=== PATIENT | male | born 1990 | race Two or more races ===

== ENCOUNTER 2018-03-30 15:42 | Emergency (ER) | payer OTHER ==
[~2018-03-30] VITALS: Ht 162.6 cm; Wt 68.0 kg
[2018-03-30 15:44] VITALS: BP 114/79
[2018-03-30] MEDS ORDERED: CEPHALEXIN500 MG ORAL (16:13)
[2018-03-30] MEDS ORDERED: BACITRACIN-P28.35 GM TP (16:13)
[2018-03-30] MEDS ORDERED: IBUPROFEN600 MG ORAL (16:13)
--- NOTE | 2018-03-30 16:13 | Emergency Room Report ---
History of Present Illness General Chief Complaint: Laceration Source: Patient Present Illness HPI 28-year-old who patient presents ER complaining of laceration on his left hand. Reports he was cutting some avocados when he cut his hand on Thursday at work. Reports does not know tetanus vaccination status. Reports right-hand dominant. Reports bleeding well controlled at this time. States he has not taken any medications. Reports pain with movement hand. Denies radiation of pain. Denies loss of sensation. Denies fever, chest pain, shortness of breath. Allergies: Coded Allergies: No Known Allergies (Unverified , 03/30/18) Patient History Past Medical History: see triage record Reviewed Nursing Documentation: PMH: Agreed; PSxH: Agreed Nursing Documentation-PMH Past Medical History: No Stated History Review of Systems All Other Systems: negative except mentioned in HPI Physical Exam Vital Signs Date Time Temp Pulse Resp B/P (MAP) Pulse Ox O2 Delivery O2 Flow Rate FiO2 03/30/18 15:44 98.4 71 18 114/79 98 Room Air Sp02 EP Interpretation: reviewed, normal General Appearance: well appearing, no apparent distress, alert, GCS 15, non- toxic Head: normocephalic, atraumatic Eyes: bilateral eye normal inspection, bilateral eye PERRL ENT: hearing grossly normal, normal pharynx, no angioedema, normal voice, uvula midline, moist mucus membranes Neck: full range of motion Respiratory: lungs clear, normal breath sounds, no rhonchi, no respiratory distress, no accessory muscle use, no wheezing, speaking full sentences Cardiovascular #1: regular rate, rhythm, no edema Cardiovascular #2: 2+ radial (R), 2+ radial (L) Musculoskeletal: back normal, digits/nails normal, gait/station normal, non- tender, decreased range of motion - hand on making a fist secondary to pain, other - NVI, sensation intact to light touch, cap refill less than 2 seconds, tender Neurologic: alert, oriented x3, responsive, motor strength/tone normal, sensory intact Psychiatric: mood/affect normal Skin: laceration - 2 cm laceration on the palmar aspect of left hand extending to the webspace between the index and middle finger, no active bleeding, no surrounding erythema or edema, scabbing noted Medical Decision Making PA Attestation Dr. Manzano is my supervising Physician whom patient management has been discussed with. Diagnostic Impression: Primary Impression: Laceration ER Course Pt presents to ED c/o laceration on left hand palm extending into webspace. DDX considered but are not limited to laceration, abrasion, contusion, cellulitis. VITAL SIGNS are WNL, patient is afebrile ED INTERVENTIONS: x-ray of left hand no acute disease per the preliminary reading. Low suspicion for tendon or ligament damage, no exposed tendons or ligaments, laceration superficial. Wound was cleaned and irrigated using copius normal saline. due to the laceration being sustained 3 days ago, will not close, will allow to heal by secondary intention. Wound cleaned and covered using sterile dressing and Bacitracin. Patient reports understanding and agreement to treatment plan. Keep wound clean and dry. Followup with PCP in 2-3 days for wound check. ER precautions given. Worker's Compensation paperwork completed. DISCHARGE: Rx provided for Keflex Rx provided for Bacitracin Rx provided for Ibuprofen At this time pt is stable for d/c to home. Patient resting comfortably, in no acute distress, nontoxic appearing, talking without difficulty. Will provide with patient care instructions and any necessary prescriptions. Patient to take medication as instructed. Care plan and follow-up instructions provided. Work note provided to patient. Patient questions asked and answered. Patient instructed to follow-up with primary care provider for wound check and suture removal. ER precautions given. Patient instructed to return to ER immediately for any new or worsening of symptoms. - Please note that this Emergency Department Report was dictated using [employer] technology software, occasionally this can lead to erroneous entry secondary to interpretation by the dictation equipment. Other X-Ray Diagnostic Results Other X-Ray Diagnostic Results : X-Ray ordered: left hand # of Views/Limited Vs Complete: 3 View Indication: Pain EP Interpretation: Yes PA Xray: Interpretation reviewed, by supervising MD, and agrees with findings. Interpretation: no dislocation, no soft tissue swelling, no fractures Impression: No acute disease DEEDEE Scribandrzej Text Rupert Arevalo PA-C Last Vital Signs Date Time Temp Pulse Resp B/P (MAP) Pulse Ox O2 Delivery O2 Flow Rate FiO2 03/30/18 15:44 98.4 71 18 114/79 98 Room Air Status: improved Disposition: HOME, SELF-CARE Condition: Stable Scripts Ibuprofen* (MOTRIN*) 600 Mg Tablet 600 MG ORAL Q8H PRN for For Pain, #30 TAB 0 Refills Prov: Colton Arevalo 03/30/18 Cephalexin* (KEFLEX*) 500 Mg Capsule 500 MG ORAL EVERY 12 HOURS, #14 CAP 0 Refills Prov: Colton Arevalo 03/30/18 Bacitracin/Polymyxin B Sulfate (BACITRACIN-POLYMYXIN OINTMENT) 28.35 Gm Oint...g. 1 APPLIC TP BID, #28 GM Prov: Colton Arevalo 03/30/18 Patient Instructions: Nonsutured Laceration Care Additional Instructions: Patient instructed to follow-up with primary care provider in 2-3 days for wound check Take medications as directed. Keep wound clean and dry. Patient questions asked and answered. ER precautions given, patient instructed to return to ER immediately for any new or worsening of symptoms. Colton Arevalo Mar 30, 2018 16:13
[2018-03-30] MEDS ORDERED: Bacitracin Oint UD TOPIC ONE (16:15)
[2018-03-30] MEDS ORDERED: Tetanus/Diptheria/Pertussis Vaccine 0.5ml Syr IM ONE (16:15)
[2018-03-30] MEDS ORDERED: Ketorolac 30mg Inj IM ONE (16:15)
[2018-03-30 16:55] VITALS: BP 124/84
--- NOTE | 2018-03-30 17:03 | Diagnostic Imaging Report ---
Indication: Pain and laceration Technique: 3 views left hand Comparison: none Findings: No acute fractures. No dislocations. The joint spaces are preserved. No radiopaque foreign body Impression: Negative
== END 2018-03-30 16:56 | disposition home or self-care (01) ==
LOC: EMR 16:27
DX: S61.412A Laceration without foreign body of left hand, initial encounter (principal); W26.0XXA Contact with knife, initial encounter; Y93.G3 Activity, cooking and baking; Y92.69 Other specified industrial and construction area as the place of occurrence of the external cause; Z23 Encounter for immunization
CPT/HCPCS: 73130; 90471; 90715; 96372; 99284; J1885